=== PATIENT | female | born 1930 | race Caucasian/White ===

== ENCOUNTER → 2016-08-07 13:35 | Outpatient (CLI) | payer MEDICARE ==
[2010-10-15 14:15] VITALS: BMI 23.7
== END | disposition home or self-care (01) ==
LOC: D.US 13:35
DX: I65.23 Occlusion and stenosis of bilateral carotid arteries (principal)

== ENCOUNTER → 2017-11-07 09:56 | Outpatient (CLI) | payer MEDICARE ==
[2010-10-15 14:15] VITALS: BMI 23.7
== END | disposition home or self-care (01) ==
LOC: D.US 11-05 14:30
DX: I65.23 Occlusion and stenosis of bilateral carotid arteries (principal)

== ENCOUNTER 2018-05-02 10:21 | Outpatient (CLI) | payer MEDICARE ==
[~2018-05-02] VITALS: Ht 162.6 cm; Wt 68.2 kg
[2018-05-02 10:57] VITALS: BP 154/65; Ht 162.6 cm; Wt 68.2 kg
== END 2018-05-02 13:45 | disposition home or self-care (01) ==
LOC: D.OPS 10:21
DX: Z95.2 Presence of prosthetic heart valve (principal)

== ENCOUNTER → 2019-02-06 11:27 | Outpatient (CLI) | payer MEDICARE ==
[2018-05-02 10:57] VITALS: BMI 25.8
== END | disposition home or self-care (01) ==
LOC: D.US 11:27
PROVIDERS: ATTEND Internal Medicine Cardiovascular Disease
DX: I65.23 Occlusion and stenosis of bilateral carotid arteries (principal)

== ENCOUNTER → 2019-03-12 11:08 | Outpatient (CLI) | payer MEDICARE ==
[2018-05-02 10:57] VITALS: BMI 25.8
== END | disposition home or self-care (01) ==
LOC: D.HCCECHO 11:08 → D.HCCARDIO 11:30 → D.HCCECHO 11:30
PROVIDERS: ATTEND Internal Medicine Cardiovascular Disease
DX: I05.9 Rheumatic mitral valve disease, unspecified (principal)

== ENCOUNTER 2019-04-29 10:15 | Outpatient (CLI) | payer MEDICARE ==
[~2019-04-29] VITALS: Ht 162.6 cm; Wt 68.2 kg
[2019-04-29 10:56] VITALS: BP 150/66; Ht 162.6 cm; Wt 68.2 kg
--- NOTE | 2019-04-29 13:39 | NUR ---
DC INSTRUCTIONS GIVEN TO PT. STATES UNDERSTANDING. DC'D IV CATH FULLY INTACT.
== END 2019-04-29 13:45 | disposition home or self-care (01) ==
LOC: D.OPS 10:15
PROVIDERS: ATTEND Internal Medicine Cardiovascular Disease
DX: I35.9 Nonrheumatic aortic valve disorder, unspecified (principal)

== ENCOUNTER 2019-06-11 11:40 | Inpatient (IN) | payer MEDICARE ==
[2019-06-11] VITALS (26 sets, daily range): BP systolic 136–173; BP diastolic 43–70; BMI 25.9
[~2019-06-11] VITALS: Ht 162.6 cm; Wt 71.1 kg
--- NOTE | ~2019-06-11 | EC ---
PATIENT:KIMBERLEE DAVALOS DATE OF SERVICE: 06/11/19 SEX: F MEDICAL RECORD: [id number] DATE OF : 34 LOCATION:D[id number] AGE OF PATIENT: 89 ADMISSION DATE: 06/11/19 REFERRING PHYSICIAN: INTERPRETING PHYSICIAN: TAVARES SZYMANSKI MD ECHOCARDIOGRAM REPORT ECHO CHARGES 4 ECHO COMPLETE Date: 06/12/19 CLINICAL DIAGNOSIS: CVA HX AVR/CAD ECHOCARDIOGRAPHIC MEASUREMENTS (adult normal given) AC root (d.<3.7cm) 3.0 cm LV Septum d (<1.2 cm> 1.3 cm Valve Excursion 1.2 cm LV Septum (systole) 1.5 cm Left Atria (s.<4.0cm> 4.0 cm LVPW d(<1.2cm) 1.5 cm RV (d.<2.3cm) 3.7 cm LVPW (sytole) 1.5 cm LV diastole(<5.6CM) 4.5 cm MV E-F(>70mm/sec) cm LV systole 3.2 cm LVOT Diameter 1.5 cm MV exc.(>10mm) 1.1 cm Est.ejection fraction (50-75%) % DOPPLER: LVIT cm/sec A 143.0cm/sec E 84.0 cm/sec LA cm/sec RVSP 28 mmHg LVOT 109 cm/sec AOP1/2T m/s Asc. Ao 231 cm/sec RVOT 99 cm/sec RA cm/sec PA 137 cm/sec AV Gradient Peak 21.36mmHg AV Mean 12.31mmHg AV Area 1.0 cm MV Gradient Peak 9.99 mmHg MV Mean 3.39 mmHg MV Area cm COMMENTS: Beef Lugger: 2 MJ ARIAS Community Development Officer: 1 Dr. Szymanski TAPE# PACS Pericardial Effusion N DATE OF SERVICE: 06/12/2019 PROCEDURE: Echocardiogram. FINDINGS: 1. Left ventricular chamber size is within normal limits. Left ventricular systolic function is normal. Overall ejection fraction estimated at 60% to 65%. 2. Left atrium is upper limits of normal at 4.0 cm. Right atrium and right ventricular chamber sizes are as well upper limits of normal. 3. 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 There is a 21-mm gradient across the valve. The valve area calculates 1.0 cm-squared. The remaining valvular structures have normal structure and motion. 4. Doppler interrogation elsewise reveals mild mitral regurgitation, mild tricuspid regurgitation, no other valvular insufficiency or stenosis. Pulmonary systolic pressure estimated at 28 mmHg. 5. No evidence of pericardial effusion or left ventricular thrombus. TRANSINT:[id number] Voice Confirmation ID: [id number] DOCUMENT ID: [id number] TAVARES SZYMANSKI MD CC: [id number] DICTATION DATE: 06/12/19 1156 SENIOR CLINICAL STUDY MANAGER: 06/12/19 1630 ADM IN [facility] [address] [id number]
[2019-06-11] MEDS ORDERED: COUMADIN2 MG PO (12:32)
[2019-06-11] MEDS ORDERED: HYDROCHLOROTHIA25 MG PO (12:33)
[2019-06-11] MEDS ORDERED: NORMODYNE / TR200 MG PO (12:33)
[2019-06-11] MEDS ORDERED: OMEPRAZOLE20 M1 PO (12:34)
--- NOTE | 2019-06-11 13:11 | NUR ---
ET TUBE PULLED BACK 3CM BY RT PER DR. SOLANO.
[2019-06-11 13:13] LABS: BASOPHILS 0.1 % (0-2); EOSINOPHILS 0.6 % (0-7); HEMOGLOBIN 14.1 g/dL (12-16); IMMATURE GRANULOCYTES 0.8 % (0-5); LYMPHOCYTES 28.7 % (15-50); MCH 29.3 pg (26.0-34.0); MCHC 33.6 g/dL (31.0-37.0); MCV 87.3 fL (80.0-100.0); MEAN PLATELET VOLUME 10.1 fL (7.4-10.4); MONOCYTES 8.4 % (2-11); NEUTROPHILS 61.4 % (40-80); RBC 4.81 10x6/uL (4.00-5.40); RDW 13.6 % (11.5-14.5); WBC 8.8 10x3/uL (4.8-10.8)
[2019-06-11 13:17] LABS: APTT 32.7 SECONDS (22.8-39.4); INR 1.99 (0.85-1.17); PROTIME 22.3 SECONDS (11.6-15.0)
[2019-06-11 13:20] LABS: CALCIUM 9.1 mg/dL (8.5-10.1); CARBON DIOXIDE 17.5 mmol/L (21.0-32.0); CREATININE - SERUM 1.4 mg/dL (0.6-1.3); POTASSIUM - SERUM 3.5 mmol/L (3.5-5.1)
[2019-06-11 13:32] LABS: UDS - AMPHET NEGATIVE QUAL (NEGATIVE); UDS - BARB NEGATIVE QUAL (NEGATIVE); UDS - BENZO NEGATIVE QUAL (NEGATIVE); UDS - COCAINE NEGATIVE QUAL (NEGATIVE); UDS - OPIATE NEGATIVE QUAL (NEGATIVE); UDS - PCP NEGATIVE QUAL (NEGATIVE); UDS - THC NEGATIVE QUAL (NEGATIVE)
[2019-06-11 13:34] LABS: BILIRUBIN - TOTAL 0.95 mg/dL (0.2-1.3); PROTEIN - SERUM 6.9 g/dL (6.4-8.2); T4 THYROXIN - FREE 1.51 ng/dL (0.76-1.46); THYROID STIMULATING HORMONE 1.97 uIU/mL (0.36-3.74)
[2019-06-11 13:35] LABS: PLATELET COUNT 242 10x3/uL (130-400)
[2019-06-11 13:38] LABS: APPEARANCE SL CLDY (CLEAR); BILIRUBIN NEGATIVE (NEGATIVE); COLOR YELLOW (YELLOW); GLUCOSE NEGATIVE (NEGATIVE); KETONE NEGATIVE (NEGATIVE); NITRITE NEGATIVE (NEGATIVE); PROTEIN TRACE mg/dL (NEGATIVE); UROBILINOGEN NORMAL (NORMAL)
[2019-06-11 13:41] LABS: BACTERIA MANY /hpf (NEGATIVE); EPITHELIAL CELLS OCC /hpf (0-5); MUCUS <1+ /lpf (NONE SEEN); RED CELLS - URINE OCC /hpf (0-5)
--- NOTE | 2019-06-11 17:50 | NUR ---
PT ARRIVED TO UNIT AT 1745 ON VENT. PLACED ON A/C, R-15, TV 500, FIO60%, PEEP 5. ETT SIZE 7.5 24 LIP LINE RIGHT. NTG TO RIGHT NARE CONNECTED TO LIWS. BROWN CONTENT NOTED. PIV TO RIGHT AC WITH PROPOFOL INFUSING AT 50MCG/KG/MIN. NS AT 100ML/HR. PIV ON LEFT HAND SALINE LOCK. MILLER CATHETER IN PLACE WITH YELLOW URINE NOTED. CONNECTED TO AUTOMOTIVE PARTS COUNTER PERSON. BP AT THIS TIME 202/67. HR 74, O2 SAT 100%. TEMP 98.7 ORALLY. WILL CONTINUE TO MONITOR.
--- NOTE | 2019-06-11 17:50 | NUR ---
TWO GOLD RINGS REMOVED FROM PATIENT HANDS. ONE IS YELLOW GOLD WITH WHITE GOLD INLAY BAND WITH 3 GOLD ACCENT WRAPPED SECTIONS. THE SECOND RING IS LARGE CHANTALE CUT WHITE STONE WITH TWO SMALL STONES FLANKING AND BAND APPEARS TO BE WHITE GOLD WITH YELLOW GOLD SURROUNDING CENTER STONE. PT ALSO HAS A QUART SIZE ZIPLOCK STYLE STORAGE BAG WITH A CLEAR BEADED BRACELET, BLACK BEADED BRACELET AND YELLOW GOLD NECKLACE WITH TREE PENDANT. THERE IS ALSO 4 PRESCRIPTION BOTTLES WITH PT NAME ON THEM. OMEPRAZOLE, WARFARIN, LABETELOL AND HYDROCHLOROTHIAZIDE.
--- NOTE | 2019-06-11 18:03 | NUR ---
DR. SUH NOTIFIED OF PATIENT ARRIVAL. NOTIFIED OF BP BEING 188/70. CAME ON 50MCG/KG/MIN OF PROPOFOL.
--- NOTE | 2019-06-11 18:11 | NUR ---
VERIFIED WITH DR. SUH IF HE WANTED VERSED TO BE STARTED. HE SAID YES. DAUGHTER'S PHONE NUMBER GIVEN TO DR. SUH.
--- NOTE | 2019-06-11 19:00 | NUR ---
Received report from off going RN. Pt is in bed sedated with bilateral wrist restriants. Pt does not awaken or respond to any verbal or physical stimuli. Admission assessment completed, see flowsheet for details. Pt repositioned for comfort. Oral care performed. No s/s of distress at this time. Will continue to monitor.
--- NOTE | 2019-06-11 19:33 | NUR ---
CALLED AND SPOKE WITH DR GAUTHIER ABOUT MANNITOL DOSING. RECEVIED NEW ORDERS FOR 40G Q12H FOR 24 HOURS. ALSO ASKED FOR DOSE OF 20MG LASIX TO BE GIVEN PRIOR TO MANNITOL. DECADRON 6MG IV Q6H.
[2019-06-11 19:50] LABS: CKMB 1.3 U/L (0.0-3.6); CREATINE KINASE 138 UL (21-215)
[2019-06-11 19:52] LABS: TROPONIN-I < 0.017 ng/mL (0.000-0.060)
[2019-06-11 19:54] LABS: MAGNESIUM - SERUM 1.7 mg/dL (1.8-2.4)
--- NOTE | 2019-06-11 21:00 | NUR ---
Spoke with daughter who is on her way from [place]. States she will be here between 2330 and 0000. She is very upset that her mother was not listed as a DNR. States that she looks forward to being here in person so that hopefully someone can explain to her why her mothers DNR was not followed. I attempted to explain to her that we do not have an advance directive on her mothers chart and that we would not be able to follow something we are unaware of. Daughter stated she would see us later on. Pt remains unresponsive despite decreasing sedation down, will continue to decrease sedation to see if able to get pt to respond. Pt repositioned for comfort. Oral care performed. No s/s of distress noted. Will continue to monitor closely.
--- NOTE | 2019-06-11 23:00 | NUR ---
Reassessment completed, see flowsheet for details. Pt repositioned for comfort. Oral care completed. Continuing to turn sedation down at this time, pt will grimance to pain but is not following commands and is unresponsive otherwise. No further needs noted. Will continue to monitor.
[2019-06-12] VITALS (43 sets, daily range): BP systolic 145–192; BP diastolic 50–108; Ht 162.6 cm; Wt 71.1 kg
--- NOTE | 2019-06-12 01:00 | NUR ---
Daughter arrived, bringing with her Living Will and POA paperwork laying out the wishes of her mom. The Living Will does not explictly spell out that the patient wanted to be a DNR. After discussion with the daughter on the matter it was agreed that we would wait till in the morning to discuss it with the doctors and to make a decision at that time. Our copy of the Living Will and POA paperwork can be found in the front of the patients paper chart. Carrie Kee and Jim Golden are listed as being POA, Carrie states that her brother Jim has , leaving her as the only POA for her mom. Pt was repositioned for comfort at this time, and Oral care was performed. At this time Pt's sedation was off. Pt is moving around some but not purposefully and is not following commands. No further needs noted. Will continue to monitor.
--- NOTE | 2019-06-12 01:15 | NUR ---
Pt belongings given to daughter Carrie Kee. Belongings included two rings, two other jewerly items and 4 prescription pill bottles.
[2019-06-12 01:47] LABS: CKMB 1.1 U/L (0.0-3.6); CREATINE KINASE 167 UL (21-215); TROPONIN-I < 0.017 ng/mL (0.000-0.060)
--- NOTE | 2019-06-12 02:00 | NUR ---
Pt started biting the tube causing the vent to alarm. Turned propofol back on at a low rate. This seems to be enough to sedate the patient at this time. No further needs noted. Will continue to monitor.
--- NOTE | 2019-06-12 03:00 | NUR ---
Reassessment completed, see flowsheet for details. Pt is laying in bed sedated and on the vent. Pt repositioned for comfort. Oral care completed. No further needs noted at this time. No s/s of distress. Will continue to monitor.
--- NOTE | 2019-06-12 05:00 | NUR ---
Pt is laying in bed sedated and on the vent at this time. Restriants were removed earlier due to patient not moving arms around much if at all at this time. Pt repositioned for comfort. Will continue to monitor.
[2019-06-12 07:14] LABS: BASOPHILS 0 % (0-2); EOSINOPHILS 0 % (0-7); HEMATOCRIT 34.6 % (36.0-48.0); HEMOGLOBIN 12.1 g/dL (12-16); IMMATURE GRANULOCYTES 0.3 % (0-5); LYMPHOCYTES 4.6 % (15-50); MCH 28.9 pg (26.0-34.0); MEAN PLATELET VOLUME 9.7 fL (7.4-10.4); MONOCYTES 3.1 % (2-11); RBC 4.18 10x6/uL (4.00-5.40); RDW 13.5 % (11.5-14.5)
[2019-06-12 07:22] LABS: INR 2.3 (0.85-1.17)
[2019-06-12 07:28] LABS: MCV 82.8 fL (80.0-100.0); PLATELET COUNT 170 10x3/uL (130-400); WBC 11.8 10x3/uL (4.8-10.8)
[2019-06-12 07:46] LABS: ALBUMIN 3.2 g/dL (3.4-5.0); ALKALINE PHOSPHATASE 82 U/L (46-116); BILIRUBIN - TOTAL 0.64 mg/dL (0.2-1.3); CALC OSMOLALITY 289 mosm/kg (275-300); CALCIUM 7.9 mg/dL (8.5-10.1); CHLORIDE - SERUM 102 mmol/L (98-107); CREATINE KINASE 173 UL (21-215); GLUCOSE 154 mg/dL (74-106); MAGNESIUM - SERUM 1.6 mg/dL (1.8-2.4); PROTEIN - SERUM 5.7 g/dL (6.4-8.2); SODIUM 142 mmol/L (136-145); TROPONIN-I < 0.017 ng/mL (0.000-0.060); UREA NITROGEN 23 mg/dL (7-18)
[2019-06-12 07:49] LABS: ALT (SGPT) 42 U/L (10-68); CARBON DIOXIDE 25.5 mmol/L (21.0-32.0); eGFR NON AFRICAN AMERICAN 55 mL/min (90-120)
[2019-06-12 07:50] LABS: POTASSIUM - SERUM 2.7 mmol/L (3.5-5.1)
--- NOTE | 2019-06-12 09:43 | NUR ---
0700 PT RECIEVED SEDATED ON VENT, ETT SECURED, HYPERTENSIVE, PIVS CDI, PATENT, MILLER DRAINING YELLOW URINE, REPOSITIONED, WILL CONTINUE TO MONITOR 0750 PTS DAUGHTER IN WAITING ROOM SAID SHE WOULD BE GOING TO GET PTS BOYFRIEND AND RETURNING, PHONE NUMBER AND VISITING HOUR SHEET PROVIDED 0900AM MEDS GIVEN, REPOSITIONED 0930 PT ATTEMPTING TO REACH ETT, AND TURNING HEAD, PROPOFOL INCREASED ER IV FLOWSHEET 0940 PTS DAUGHTER HERE FOR VISITATION
--- NOTE | 2019-06-12 09:55 | NUR ---
DR GAUTHIER IN UNIT, SPOKE WITH FAMILY, ORDERS TO WEAN SEDATION OFF TO SEE IF PT FOLLOWS COMMANDS
--- NOTE | 2019-06-12 12:00 | NUR ---
1130 PT DOES NOT FOLLOW COMMANDS OR OPEN EYES BUT COUGHS AND ATTEMPTS TO SIT UP AND PULL ETT, DR GAUTHIER CALLED AND OKAYED TO RESUME SEDATION
--- NOTE | 2019-06-12 12:29 | NUR ---
RECIEVED CALL FROM DR DICKERSON TO MOVE ETT TO 22CM AND GET CXR. RT NOTIFIED
--- NOTE | 2019-06-12 12:58 | NUR ---
MANITOL INFUSED, WILL DECREASE SEDATION PER DR DICKERSON
--- NOTE | 2019-06-12 13:47 | NUR ---
SEDATION WEANED OFF AND PT INTERMITTLY FOLLOWING COMMANDS, WHEN ASKED TO DO HAND RN CIRCULATING PT WILL DO RIGHT BUT NOT LEFT SIDE THEN WHEN ASKED AGAIN WILL DO LEFT SIDE BUT NOT RIGHT SIDE
--- NOTE | 2019-06-12 13:55 | NUR ---
SPOKE WITH DR DICKERSON AND UPDATED, ORDERS FOR PRESSURE SUPPORT TRAIL IN 30 MINUTES, RT NOTIFIED
--- NOTE | 2019-06-12 16:45 | NUR ---
EXTUBATED AND RESTRAINTS REMOVED PER DR DICKERSON IN UNIT
--- NOTE | 2019-06-12 18:09 | NUR ---
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
--- NOTE | 2019-06-12 19:00 | NUR ---
BEDSIDE REPORT AND SHIFT ASSESSMENT COMPLETE, SEE FLOWSHEET. VSS, NO SIGNS 0F ACUTE DISTRESS NOTED. PT SLEEPING, EASY TO AROUSE AND SLOW TO RESPOND. BRUISES TO BILAT ARMS. R FOREARM PIV PATENT, DRESSING CDI, SEE IV FLOWSHEET. O2 SAT 97 ON 4 L NC. ALL PULSES PALP. BED IN LOWEST POSITION, CALL LIGHT IN REACH, WILL CONTINUE TO MONITOR.
--- NOTE | 2019-06-12 20:00 | NUR ---
DR SUH AT BEDSIDE, UPDATE GIVEN. HE SPOKE WITH DAUGHTER AND SUGGESTED THAT DR GAUTHIER AND DAUGHTER MEET IN AM TO DISCUSS POC. I INFORMED HIM THAT I WOULD PASS IT ALONG TO AM RN TO SCHEDULE MEETING. HE SAID IF HE NEEDS TO BE HERE WELL TO CALL.
--- NOTE | 2019-06-12 20:20 | NUR ---
DOMO COLLINS AT BEDSIDE, UPDATE GIVEN.
--- NOTE | 2019-06-12 21:30 | NUR ---
CHG BATH, MILLER CARE, AND LINEN CHANGE COMPLETE WITH ASSISTANCE FROM PT DAUGHTER. PT'S DAUGHTER REFUSED SCD'S, STATES LAST TIME PT WAS IN HOSPITAL THEY LEFT BRUISES ON HER LEGS. L ARM BRUSED, B/P CUFF MOVED TO L LEG, PT'S DAUGHTER EXPRESSED CONCERN OF BRUISING, INFORMED SKIN WOULD BE MONITORED AND NIPB SITE WOULD BE ROTATED.
--- NOTE | 2019-06-12 22:15 | NUR ---
DAUGHTER AT BEDSIDE EXPRESSING CONCERN ABOUT LEAVING FOR VISITING HOURS, SAID "I DONT KNOW WHAT KIND OF SECRETS YOU ARE TRYING TO KEEP FROM ME BY SHOVING ME IN THE OTHER R0OM BUT I DONT LIKE IT" INFORMED HER THAT THERE WERE NO SECRETS AND IF THERE WERE ANY CHANGES R/T PT CARE OR STATUS SHE WILL BE INFORMED.
--- NOTE | 2019-06-12 22:20 | NUR ---
PT'S DAUGHTER REMOVED B/P CUFF AND ARM BANDS FROM ARM. B/P CUFF PLACED BACK ON PT'S ARM.
--- NOTE | 2019-06-12 23:00 | NUR ---
REASSESSMENT COMPLETE, SEE FLOWSHEET.
[2019-06-13] VITALS (24 sets, daily range): BP systolic 132–188; BP diastolic 45–70
--- NOTE | 2019-06-13 01:00 | NUR ---
REPOSITIONED FOR COMFORT. VSS.
--- NOTE | 2019-06-13 03:00 | NUR ---
REASSESSMENT COMPLETE, SEE FLOWSHEET. PT GAURDING L ARM, GRIMACES IN PAIN WHEN B/P CUFF INFLATES. L UPPER ARM RED, BRUISED. B/P CUFF MOVED TO LLE. REPOSITIONED FOR COMFORT. VSS, NO SIGNS OF ACUTE DISTRESS NOTED. WILL CONTINUE TO MONITOR.
--- NOTE | 2019-06-13 04:00 | NUR ---
DAUGHTER AT BEDSIDE, VOICING OPINION OF FAMILY INCLUSION IN THE INTENSIVE CARE SETTING. UPDATE GIVEN ON PT STATUS.
--- NOTE | 2019-06-13 05:00 | NUR ---
REPOSITIONING COMPLETE. VSS, NO SIGNS OF DISTRESS NOTED. DAUGHTER AT BEDSIDE.
[2019-06-13 05:50] LABS: BASOPHILS 0 % (0-2); EOSINOPHILS 0 % (0-7); HEMATOCRIT 29.7 % (36.0-48.0); IMMATURE GRANULOCYTES 0.4 % (0-5); LYMPHOCYTES 3.8 % (15-50); MCH 28.9 pg (26.0-34.0); MCHC 33.7 g/dL (31.0-37.0); MEAN PLATELET VOLUME 9.7 fL (7.4-10.4); MONOCYTES 3.6 % (2-11); NEUTROPHILS 92.2 % (40-80); PLATELET COUNT 138 10x3/uL (130-400); RBC 3.46 10x6/uL (4.00-5.40); WBC 10.6 10x3/uL (4.8-10.8)
[2019-06-13 06:02] LABS: MCV 85.8 fL (80.0-100.0)
[2019-06-13 06:16] LABS: ALBUMIN 2.8 g/dL (3.4-5.0); ANION GAP 12.6 mmol/L (8-16); BILIRUBIN - TOTAL 0.46 mg/dL (0.2-1.3); CALCIUM 7.1 mg/dL (8.5-10.1); CARBON DIOXIDE 25.9 mmol/L (21.0-32.0); CREATININE - SERUM 0.8 mg/dL (0.6-1.3); MAGNESIUM - SERUM 1.8 mg/dL (1.8-2.4); POTASSIUM - SERUM 3.5 mmol/L (3.5-5.1); PROTEIN - SERUM 5.2 g/dL (6.4-8.2)
[2019-06-13 06:39] LABS: INR 2.45 (0.85-1.17); PROTIME 26.2 SECONDS (11.6-15.0)
--- NOTE | 2019-06-13 09:06 | NUR ---
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 BP CUFF SITE ROTATED, SEE SHIFT ASSESSMENT FOR DETAILS 0800 DAUGHTER IN ROOM FOR VISITATION, UPDATE PROVIDED AND TOLD THAT SHE WOULD BE NOTIFIED MDS ROUNDED. 0900 DR SUH IN ROOM, SPOKE WITH PTS DAUGHTER IN LENGTH, HE ASKED WHEN DR GAUTHIER WOULD ROUND STATED DR GAUTHIER USUALLY ROUNDS AFTER HIS CLINIC AND HE STATED THIS WAS FINE LONG HE SPOKE WITH DAUGHTER.
--- NOTE | 2019-06-13 10:12 | NUR ---
ASKED PTS DAUGHTER IF SHE WOULD BE IN WAITING ROOM TO SPEAK WITH MDS THEY ROUNDED WHILE IT WAS NOT VISITATION AND SHE STATED SHE WOULD NOT BE, WILL NOTIFY MDS THAT SHE WILL RETURN AND WILL HAVE HER PHONE WITH HER. PT CONTINUES WITH OUT CHANGE, INTERMITTENTLY FOLLOWS COMMANDS AND AWAKENS WHEN SPOKEN TO
--- NOTE | 2019-06-13 13:50 | NUR ---
1156 DR DICKERSON IN ROOM FOR ROUNDS, CHECKED WAITING ROOM FOR PTS DAUGHTER WHO WAS NOT PRESENT, DR DICKERSON STATED HE DID NOT WANT TO CALL DAUGHTER BECAUSE HE DID NOT HAVE NEWS. 1230 PTS DAUGHTER HERE FOR VISITATION, UPDATE PROVIDED 9232 PTS DAUGHTER NOTED TO BE PUTTING SOMETHING THICK AND WHITE ON PTS LIPS, WHEN ASKED SHE STATED IT WAS "OLD CHAPSTICK" . DISCUSSED TO USE MOUTH MOISTURIZER THAT IS IN ROOM BECAUSE PT IS ON O2 AND SHOULD NOT USE PRODUCTS WITH PETROLEUM. DAUGHTER STATES UNDERSTANDING.
--- NOTE | 2019-06-13 14:31 | NUR ---
PT ABLE TO STATE NAME, BELIEVES SHE IS IN [place] AND THAT IT IS MAY, STATES SHE WAS BORN IN YEAR 2020, WHEN HOLDING UP 5 FINGERS STATES THERE IS 12 AND WHEN HOLDING UP 1 FINGER STATES THERE IS 6. PT IS ABLE TO MOVE EXTREMETIES ON COMMAND AND HAS EQUAL MOVEMENT.
--- NOTE | 2019-06-13 18:56 | NUR ---
dr vieira spoke with daughter, answered all questions
--- NOTE | 2019-06-13 19:45 | NUR ---
REPORT REC'D AND CARE ASSUMED, REC'D PT RESTING IN BED ON O2 @ 2LITERS, PT HAS DIFFICULTY EXPRESSING THE RIGHT WORD WHEN ATTEMPTING VOICE NEEDS, ORIENTED TO PERSON AND YEAR, RIGHT FOREARM PIV WITH NS @ 10OCC/HR, BILAT ARMS BRUISED, ACCORDING TO PT'S DAUGHTER IT WAS CAUSED FROM BP CUFF, BP CUFF ON LEFT LEG AT THIS TIME, PT MOVES ALL EXT'S EQUALLY, MILLER PATENT DRAINING CLEAR YELLOW URINE, PPP, BED IN LOW POSITION, CALL LIGHT IN REACH, BED ALARM ENGAGED.
--- NOTE | 2019-06-13 20:00 | NUR ---
PT HAS SUPPER TRAY WHICH SHE CONSUMED 40% OF, DAUGHTER AT BS ASSISTING PATIENT WITH DESSERT, UPDATE PROVIDED AND QUESTIONS ANSWERED, PT REQUESTING MILK, MILK PROVIDED AT THIS TIME.
--- NOTE | 2019-06-13 21:15 | NUR ---
PT ABLE TO BRUSH OWN TEETH ONCE SHE GOT STARTED, RINSING MOUTH REQUIRED SOME PROMPTING, DAUGHTER AT BS ASSISTING.
--- NOTE | 2019-06-13 22:30 | NUR ---
PARTIAL LINEN CHANGE PROVIDED AND PT REPOSITIONED UP IN BED AND ONTO RIGHT SIDE SUPPORTED WITH PILLOW.
--- NOTE | 2019-06-13 23:15 | NUR ---
PT ATTEMPTING TO GET OOB, STATES "WIPE" KLEENEX OFFERED, STATES "WIPE", READY BATH CLOTH PROVIDED PT STATES "NO WET WIPE" EXPLANIED TO PT THE READY BATH WIPE IS WET, PT CHECKED FOR BM, SMALL LOOSE BROWN STOOL NOTED, PARTIAL BATH AND LINEN CHANGE PROVIDED, PT REPOSITIONED FOR COMFORT, SR UP X 2, BED IN LOW POSITION, CALL LIGHT IN REACH.
[2019-06-14] VITALS: BP 160/47
[2019-06-14 01:00] VITALS: BP 158/81
--- NOTE | 2019-06-14 01:00 | NUR ---
NO CHANGES IN STATUS
[2019-06-14 02:00] VITALS: BP 167/54
[2019-06-14 03:00] VITALS: BP 171/57
--- NOTE | 2019-06-14 03:00 | NUR ---
REASSESSMENT COMPLETED, NO CHANGES FROM PREVIOUS ASSESSMENT, PT REPOSITIONED UP AND ONTO LEFT SIDE SUPPORTED WITH PILLOW.
--- NOTE | 2019-06-14 04:00 | NUR ---
DAUGHTER AT BS, UPDATE PROVIDED
--- NOTE | 2019-06-14 04:06 | NUR ---
PT COMPLAINS OF LEFT SHOULDER PAIN AND LEGS HURTING, GENERALIZED BRUISING TO BILAT EXT'S, TYLENOL 650MG GIVEN PO FOR DISCOMFORT, WILL MONITOR CLOSELY FOR CHANGES.
--- NOTE | 2019-06-14 05:30 | NUR ---
CHG BATH AND COMPLETE LINEN CHANGE PROVIDED WITH DAUGHTER'S ASSISTANCE, PT REPOSITIONED UP IN BED AND ONTO RIGHT SIDE SUPPORTED WITH PILLOW, TOLERATED WELL, PT REPORTS TYLENOL HELPED.
[2019-06-14 06:13] LABS: BASOPHILS 0 % (0-2); EOSINOPHILS 0 % (0-7); HEMATOCRIT 31.9 % (36.0-48.0); HEMOGLOBIN 10.5 g/dL (12-16); IMMATURE GRANULOCYTES 0.6 % (0-5); LYMPHOCYTES 5.3 % (15-50); MCH 28.7 pg (26.0-34.0); MCHC 32.9 g/dL (31.0-37.0); MCV 87.2 fL (80.0-100.0); MEAN PLATELET VOLUME 10.3 fL (7.4-10.4); MONOCYTES 3.7 % (2-11); NEUTROPHILS 90.4 % (40-80); PLATELET COUNT 133 10x3/uL (130-400); RBC 3.66 10x6/uL (4.00-5.40); RDW 13.8 % (11.5-14.5); WBC 10.5 10x3/uL (4.8-10.8)
--- NOTE | 2019-06-14 08:08 | NUR ---
PT POSITIONED FOR BREAKFAST. DAUGHTER AT BS.
[2019-06-14 08:52] LABS: PROTIME 21.6 SECONDS (11.6-15.0)
[2019-06-14 08:59] LABS: INR 1.9 (0.85-1.17)
[2019-06-14 09:04] LABS: ALBUMIN 3.1 g/dL (3.4-5.0); ANION GAP 12.7 mmol/L (8-16); BILIRUBIN - TOTAL 0.69 mg/dL (0.2-1.3); CALCIUM 7.8 mg/dL (8.5-10.1); CARBON DIOXIDE 24.8 mmol/L (21.0-32.0); CREATININE - SERUM 0.8 mg/dL (0.6-1.3); POTASSIUM - SERUM 3.5 mmol/L (3.5-5.1); PROTEIN - SERUM 5.9 g/dL (6.4-8.2)
--- NOTE | 2019-06-14 09:10 | NUR ---
ATTEMPTING TO TAKE BP. PT YELLING OUT IN PAIN WITH BP CUFF ON LEG BECAUSE REFUSING TO ALLOW ARMS TO BE USED FOR BP BY DAUGHTER DUE TO BRUISING. DAUGHTER VERY EXCITED WELL AND DEMANDS TO STOP CUFF INFLATION. STOPPED BP AND TOOK CUFF OFF. PT IN ROOM TO AMB. PTS DAUGHTER INSIST FOR PT TO BE PLACED SEATED AT WINDOW. NO CM WILL REACH AT THIS POINT.
[2019-06-14 13:18] VITALS: BP 140/70
--- NOTE | 2019-06-14 13:52 | NUR ---
DR SUH ROUNDS AND REPORTED THAT PT AND HER DAUGHTER REFUSE BP MONITORING. APPLIED BP CUFF TO PTS LEG AND PT BEGAN TO YELL AND SHAKE EXTREMITY. NO BP RESULTED.
--- NOTE | 2019-06-14 13:55 | NUR ---
DAUGHTER BROUGHT IN MANUAL BP CUFF. BP 140/80.
--- NOTE | 2019-06-14 16:01 | NUR ---
REPORTED TO DR GUTIÉRREZ CONSULT. REC'D ORDER FOR SLING.
[2019-06-14 19:30] VITALS: BP 160/72
--- NOTE | 2019-06-14 19:33 | NUR ---
NORCO 5 GIVEN PO FOR PAIN, PT COMPLAINS OF BEING COLD, BLANKET PROVIDED AND LEFT ARM ELEVATED ON PILLOW, PT ESCORT NOTIFIED BY PREVIOUS SHIFT OF NEED FOR ARM SLING WILL APPLY WHEN ARRIVES.
--- NOTE | 2019-06-14 19:40 | NUR ---
REPORT REC'D AND CARE ASSUMED, PT RESTING ON ROOM AIR, ASKING FOR SOMETHING TO BE WRITTEN ON THE BLACKBOARD, PT ORIENTED TO PERSON AND YEAR, PT TEARFUL AT TIMES WHILE ATTEMPTING TO COMMUNICATE, BILAT BRUISES FROM HAND TO RIGHT ELBOW AND ON LEFT FROM FOREARM TO UPPER LEFT ARM, SR UP X 2, ICE PACKS REMOVED FROM LEFT ARM PER PT REQUEST, PT COMPLAINS OF PAIN, RATING PAIN "6" ON 0-10 PAIN SCALE, BED IN LOW POSITION, CALL LIGHT IN REACH.
--- NOTE | 2019-06-14 20:35 | NUR ---
DAUGHTER AT BS, UPDATE GIVEN AND QUESTIONS ANSWERED, PT RESTING IN BED EYES CLOSED, CM-SR.
--- NOTE | 2019-06-14 22:30 | NUR ---
PT ASSISTED UP TO BEDSIDE COMMODE, PERIPAD WET, LINENS WET WITH SWEAT, PARTIAL BATH AND FULL LINEN CHANGE PROVIDED, PT HAD SMALL BM AND APPROXIMATELY 100CC JOSE COLORED URINE, PERICARE PROVIDED WITH ASSISTANCE OF DAUGHTER, PT ASSISTED BACK TO BED, LEFT ARM ELEVATED ON PILLOW, ICE WATER PROVIDED ON REQUEST, SR UP X 2, CALL LIGHT AND BS TABLE WITHIN REACH.
--- NOTE | 2019-06-14 23:30 | NUR ---
REASSESSMENT COMPLETED, HOSPITAL BAND FELL OFF, NEW ID BAND PLACE ON PT, PT ASSISTED TO POSITION FOR COMFORT, DENIES NEEDS, SR UP X 2, BED IN LOW POSITION, CALL LIGHT IN REACH
--- NOTE | 2019-06-15 01:30 | NUR ---
PT RESTING IN BED, EYES CLOSED, RESP EVEN AND UNLABORED, CM-SR @ 65, PULSE OX 96% ON ROOM AIR, WILL CONT TO MONITOR CLOSELY FOR CHANGES
--- NOTE | 2019-06-15 03:30 | NUR ---
REASSESSMENT COMPLETED, PT RESTING IN BED EYES CLOSED, RESP EVEN AND UNLABORED, VSS, BED IN LOW POSITION, SR UP X 2, CALL LIGHT IN REACH.
[2019-06-15 04:00] VITALS: BP 154/70
--- NOTE | 2019-06-15 05:35 | NUR ---
PT ASSISTED UP TO BSC X 2 ASSISTS, PT VOIDED 150CC CONCENTRATED URINE AND HAD SMALL LOOSE BROWN STOOL, PERICARE PROVIDED AND BEE PAD CHANGED, ASSISTED PT BACK TO BED, SPLINT APPLIED TO LEFT ARM, TOLERATED WELL, CALL LIGHT IN REACH, DAUGHTER AT BS.
[2019-06-15 06:08] LABS: BASOPHILS 0 % (0-2); EOSINOPHILS 0 % (0-7); HEMATOCRIT 32.1 % (36.0-48.0); HEMOGLOBIN 10.5 g/dL (12-16); IMMATURE GRANULOCYTES 0.4 % (0-5); LYMPHOCYTES 7.2 % (15-50); MCH 28.6 pg (26.0-34.0); MCHC 32.7 g/dL (31.0-37.0); MCV 87.5 fL (80.0-100.0); MONOCYTES 2.7 % (2-11); NEUTROPHILS 89.7 % (40-80); RBC 3.67 10x6/uL (4.00-5.40); RDW 13.8 % (11.5-14.5); WBC 10.3 10x3/uL (4.8-10.8)
[2019-06-15 06:14] LABS: PLATELET COUNT 188 10x3/uL (130-400)
[2019-06-15 06:36] LABS: INR 1.6 (0.85-1.17); PROTIME 18.8 SECONDS (11.6-15.0)
[2019-06-15 07:00] VITALS: BP 160/80
[2019-06-15 07:01] LABS: ANION GAP 17.2 mmol/L (8-16); BILIRUBIN - TOTAL 0.6 mg/dL (0.2-1.3); CREATININE - SERUM 0.9 mg/dL (0.6-1.3); POTASSIUM - SERUM 4.2 mmol/L (3.5-5.1); PROTEIN - SERUM 5.8 g/dL (6.4-8.2)
--- NOTE | 2019-06-15 08:22 | NUR ---
ASSIOSTED TO CHAIR. DR KUMARI HERE THIS AM.
[2019-06-15 11:00] VITALS: BP 158/70
[2019-06-15 15:00] VITALS: BP 138/78
--- NOTE | 2019-06-15 18:11 | NUR ---
1300- DR GUTIÉRREZ SPOKE TO PT AND HER DAUGHTER AT BS TODAY ON ROUNDS. CM NOTIFIED RE: LAURA KIRK.
--- NOTE | 2019-06-15 18:12 | NUR ---
1500- DR GAUTHIER SPOKE TO PT AND HER DAUGHTER ON ROUNDS TODAY. NO NEW ORDERS AT PRESENT TIME. DR BROWN ALSO SPOKE TO PT AND HER DAUGHTER ON ROUNDS AT BS.
[2019-06-15 19:00] VITALS: BP 154/82
--- NOTE | 2019-06-15 19:20 | NUR ---
SHIFT ASSESSMENT COMPLETE. NO DISTRESS NOTED AT THIS TIME. CALL LIGHT WITHIN REACH, BED IN LOW POSITION.
--- NOTE | 2019-06-15 21:15 | NUR ---
PATIENT RESTING WITH EYES CLOSED. NO DISTRESS NOTED AT THIS TIME. CALL LIGHT WITHIN REACH, BED IN LOW POSITION.
[2019-06-15 23:00] VITALS: BP 146/79
--- NOTE | 2019-06-15 23:00 | NUR ---
REASSESSMENT COMPLETE. NO CHANGES IN CONDITION. CALL LIGHT WITHIN REACH, BED IN LOW POSITION. PATIENT DENIES ANY NEEDS AT THIS TIME.
--- NOTE | 2019-06-16 00:51 | NUR ---
PATIENT OUT OF BED TO [facility] WITH [place]IST. PATIENT TOLERATED WELL. INCONTINENCE PAD CHANGED AND BEE AREA CLEANED. PATIENT VOIDED APPROX 700ML OF YELLOW URINE.
--- NOTE | 2019-06-16 01:24 | NUR ---
PATIENT C/O PAIN IN SHOULDER, APPROX. 3 ON PAIN SCALE. PATIENT STATES PAIN IS ACHING. PAIN MED GIVEN PER MD ORDER.
[2019-06-16 03:00] VITALS: BP 125/70
--- NOTE | 2019-06-16 03:00 | NUR ---
REASSESSMENT COMPLETE. NO CHANGES IN PATIENT CONDITION. CALL LIGHT WITHIN REACH, BED IN LOW POSITION.
[2019-06-16 04:24] LABS: BASOPHILS 0 % (0-2); EOSINOPHILS 0 % (0-7); HEMOGLOBIN 9.8 g/dL (12-16); IMMATURE GRANULOCYTES 1.9 % (0-5); LYMPHOCYTES 8.2 % (15-50); MCH 28.1 pg (26.0-34.0); MCHC 32.7 g/dL (31.0-37.0); MEAN PLATELET VOLUME 9.9 fL (7.4-10.4); MONOCYTES 4.5 % (2-11); NEUTROPHILS 85.4 % (40-80); PLATELET COUNT 175 10x3/uL (130-400); RBC 3.49 10x6/uL (4.00-5.40); RDW 13.6 % (11.5-14.5); WBC 9.3 10x3/uL (4.8-10.8)
[2019-06-16 04:40] LABS: INR 1.56 (0.85-1.17); PROTIME 18.5 SECONDS (11.6-15.0)
[2019-06-16 04:50] LABS: ALBUMIN 2.7 g/dL (3.4-5.0); ANION GAP 12.4 mmol/L (8-16); BILIRUBIN - TOTAL 0.55 mg/dL (0.2-1.3); CALCIUM 7.8 mg/dL (8.5-10.1); CARBON DIOXIDE 24.6 mmol/L (21.0-32.0); MAGNESIUM - SERUM 1.7 mg/dL (1.8-2.4); PROTEIN - SERUM 5.2 g/dL (6.4-8.2)
[2019-06-16 07:00] VITALS: BP 142/82
--- NOTE | 2019-06-16 07:46 | NUR ---
AWAITING KYE FROM PHARMACY, SPOKE WITH RADHA
--- NOTE | 2019-06-16 08:38 | NUR ---
0700 PT RECIEVED ALERT AND ORIENTED VSS NO SIGNS OF PAIN, RFA PIV SL, DRESSING CDI, SEE SHIFT ASSESSMENT FOR DETAILS 0800 OK TO TRANSFER TO FLOOR PER DR GAUTHIER 0830 PT TOOK AM MEDS AND ATE BREAKFAST, ASSISTED WITH MENU, THEN DAUGHTER HERE FOR VISITATION, INFORMED OF TRANSFER ORDERS.
--- NOTE | 2019-06-16 09:02 | NUR ---
REPORT CALLED TO [phone] MORGAN
--- NOTE | 2019-06-16 09:18 | NUR ---
PATIENT RECIEVED FROM ICU VIA WHEELCHAIR. NO DISTRESS. AGREE WITH PREVIOUS NURSE ASSESSMENT.
[2019-06-16 12:45] VITALS: BP 188/86
[2019-06-16 17:21] VITALS: BP 178/92
--- NOTE | 2019-06-16 19:15 | NUR ---
PATIENT ALERT AND ORIENTED. DAUGHTER AT BEDSIDE. ASSESSMENT PERFORMED. PATIENT IS ALERT AND ORIENTED. WHEN ASSESSING PERRLA, PATIENT RIGHT EYE IS REACTIVE BUT IS 2MM WHERE LEFT EYE IS ALSO REACTIVE BUT 3MM. PATIENT HAS LEFT ARM IN SLING. LEFT UPPER EXTREMETY HAS EXTENSIVE BRUISING AND SWELLING IS NOTED. PATIENT STATES "IT IS BROKEN". DOCTORS AWARE OF INJURY WHEN PERFORMING CHART CHECKS. LUNG SOUNDS ARE CLEAR BILATERALLY TO AUSCULTATION. BOWEL SOUNDS ARE ACTIVE. PATIENT DENIES PAIN AND DISCOMFORT AT THIS TIME. BILATERAL LOWER EXTREMETIE HAVE BRUISING TO BOTH KNEE AREAS. ASSESSED PEDAL PULSES AND BOTH ARE STRONG AND EQUAL. 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 BED ALARM ON DUE TO FALL SCORE CRITERIA. DAUGHTER IS STAYING THE NIGHT. SHE DISALARMS BED ALARM WHEN ASSISTING PATIENT TO THE BATHROOM. ADVISED SEVERAL TIMES TO PLEASE CALL TO AVOID ANY FALLS, INJURIES, AND POSSIBLE PROLONGING OF HOSPTIAL STAY. CALL LIGHT IN REACH. DENIES FURTHER NEEDS AT THIS TIME. CPOC.
[2019-06-16 19:30] VITALS: BP 176/80
[2019-06-17 00:30] VITALS: BP 178/75
--- NOTE | 2019-06-17 02:46 | NUR ---
RESTING WITHOUT DISCOMFORT OR DISTRESS NOTED. DAUGHTER REMAINS AT BEDSIDE. BED ALARM ON AND FUNCTIONING. CALL LIGHT IN REACH OF BOTH DAUGHTER AND PATIENT. CPOC.
[2019-06-17 05:27] LABS: ANION GAP 14.1 mmol/L (8-16); CALCIUM 7.6 mg/dL (8.5-10.1); CARBON DIOXIDE 25.4 mmol/L (21.0-32.0); POTASSIUM - SERUM 3.5 mmol/L (3.5-5.1)
[2019-06-17 05:30] VITALS: BP 164/72
[2019-06-17 05:45] LABS: BASOPHILS 0.2 % (0-2); EOSINOPHILS 0 % (0-7); HEMATOCRIT 30.4 % (36.0-48.0); HEMOGLOBIN 10.2 g/dL (12-16); IMMATURE GRANULOCYTES 3.9 % (0-5); LYMPHOCYTES 6.9 % (15-50); MCH 28.7 pg (26.0-34.0); MCHC 33.6 g/dL (31.0-37.0); MCV 85.6 fL (80.0-100.0); MEAN PLATELET VOLUME 10.5 fL (7.4-10.4); PLATELET COUNT 180 10x3/uL (130-400); RBC 3.55 10x6/uL (4.00-5.40); RDW 13.4 % (11.5-14.5); WBC 11.4 10x3/uL (4.8-10.8)
--- NOTE | 2019-06-17 06:19 | NUR ---
I have reviewed this patient and I concur with the Shift Assessment completed by the Licensed Practical Nurse today this shift.
[2019-06-17 09:21] VITALS: BP 156/72
--- NOTE | 2019-06-17 09:25 | NUR ---
NOTIFIED EZEQUIEL IN [employer]ERIALS ABOUT CUFF AND COLLAR SLING. STATED SHE HAD FAXED THE INFORMATION TO THEM YESTERDAY, BUT SHE WILL CALL THEM AGAIN AND SEE WHY THEY HAVENT COME AND WILL LET ME KNOW.
--- NOTE | 2019-06-17 10:19 | MORECARE ---
CASE MANAGEMENT DISCHARGE SUMMARY PATIENT: KIMBERLEE DAVALOS UNIT: [id number] ADM DATE: 06/11/19 AGE: 89 : 32 SEX: F ROOM/BED: D.2215 AUTHOR: DURGA BRITO PHYSICIAN: REFERRING PHYSICIAN: DALIA SUH MD DATE OF SERVICE: 06/17/19 Discharge Plan Patient Name: KIMBERLEE DAVALOS Facility: [facility]:[place] : 1930 Planned Disposition: Inpatient Rehab Anticipated Discharge Date: Discharge Date: Expected LOS: Initial Reviewer: [id number] Initial Review Date: 06/11/2019 Generated: 06/17/19 11:18 am Comments DCP- Discharge Planning Updated by [email or web address]: Eliza Turpin on 06/17/19 9:[address] Patient Name: KIMBERLEE DAVALOS Admission Status: ER Accout number: [id number] Admission Date: 06-11-2019 : 1930 Admission Diagnosis: Attending: NATALY Current LOS: 6 Anticipated DC Date: Planned Disposition: Inpatient Rehab Primary Insurance: MEDICARE A & B Discharge Planning Comments: CM met with patient & daughter to complete initial dc planning assessment. CM educated patient on the CM role and verbal consent given by patient to complete assessment. Patient lives at home in [facility], where she is independent with her care. At discharge patient plans to go to inpatient rehab at [facility] feels this is a safe discharge. CM discussed availability of home health, rehab services, and medical equipment. The daughter who lives in [place], stated that she would like to go here to inpatient rehab. HAILEE signed. We also discussed about the levels of care. She has a cane, walker, and BSC at home, but does NOT use any of them. 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 HAILEE for Inpatient rehab at [facility] and [facility]. Patient denied known discharge needs at this time. CM will continue to follow and will assist as needed with dc plans/needs. Donation Worker: Eliza Turpin DCPIA - Discharge Planning Initial Assessment Updated by [email or web address]: Eliza Turpin on 06/17/19 10:12 am * Is the patient Alert and Oriented? Yes * How many steps to enter\exit or inside your home? * PCP ABDIRIZAK REYES APN * Pharmacy [facility] * Preadmission Environment Home Alone * ADLs Independent * Equipment Bedside Commode Cane Walker * List name and contact numbers for known caregivers / representatives who currently or will assist patient after discharge: KARINA CABALLERO (DAUGHTER) [phone] * Verbal permission to speak to the caregivers and representatives has been obtained from the patient. N/A * Community resources currently utilized None * Additional services required to return to the preadmission environment? Yes * Can the patient safely return to the preadmission environment? No * Has this patient been hospitalized within the prior 30 days at any hospital? No Coverage Notice Reviewer: [id number] - Eliza Turpin Notice Issued Date-Time: 06/17/2019 9:50 Notice Type: Patient Choice Letter Notice Delivered To: Patient Relationship to Patient: Administrative Services Specialist Name: Delivery Method: HAND - Hand Delivered Nereida Days: Prior Verbal Notification: Recipient Understood Notice: Yes Recipient Signature: Yes Med Rec Note Co-signed by Attending: Coverage Notice Comment: [facility] for [facility] rehab [facility] Patient Name: KIMBERLEE DAVALOS Page [phone] at 1019 All edits/amendments must be made on the electronic document DICTATION DATE: 06/17/19 1018 CLASSIFICATION COUNSELOR: CRYS 06/17/19 1018 RPT#: [id number] DC DATE: STATUS: ADM IN [facility] [address] [place] [address] END OF REPORT
[2019-06-17 13:20] VITALS: BP 186/92
[2019-06-17 14:38] LABS: CKMB 3.2 U/L (0.0-3.6); CREATINE KINASE 107 UL (21-215)
[2019-06-17 14:53] LABS: TROPONIN-I 1.269 ng/mL (0.000-0.060)
--- NOTE | 2019-06-17 15:14 | NUR ---
NUTRITION F/U PT SLEEPING WITH FAMILY AT BEDSIDE. TOLERATING REG MECH SOFT DIET. PT AND DTR REQUESTING THAT DIET BE ADVANCED TO REG. INFORMED BOTH THAT DECISION WOULD HAVE TO BE MADE BY MD AND SPEECH THERAPY. RD FOLLOWING
--- NOTE | 2019-06-17 15:23 | NUR ---
COURTNEY ZULETA NOTFIED ABOUT TROPONIN 1.269. CONSULTED CARDIOLOGY.
[2019-06-17 17:18] VITALS: BP 158/72
--- NOTE | 2019-06-17 18:00 | NUR ---
DR. ANGEL IN TO TALK TO PATIENT AND DAUGHTER. STATED HE WOULD ORDER MRI AND CT. PATIENT IN BED WITH IV INTACT. NORCO 7.5MG GIVEN EARLIER FOR PAIN. FEELING A BETTER AT THIS TIME. CALL LIGHT WITHIN REACH.
[2019-06-17 19:30] VITALS: BP 128/56
--- NOTE | 2019-06-17 19:30 | NUR ---
PT SITTING UP IN BED WITHOUT DISTRESS, ORIENTED TO SELF ONLY. DAUGHTER AT BEDSIDE. IV RIGHT FA SL, FLUSHES EASILY. LEFT ARM IN SLING. BRUISING TO BILAT ARMS. PT BEING TAKEN TO CT AT THIS TIME. WILL CTM
[2019-06-17 20:04] LABS: CKMB 2.3 U/L (0.0-3.6); CREATINE KINASE 64 UL (21-215)
[2019-06-17 20:08] LABS: TROPONIN-I 1.127 ng/mL (0.000-0.060)
--- NOTE | 2019-06-17 21:30 | NUR ---
DAUGHTER STATES PT HAS NOT VOIDED ALL DAY. PT DOES NOT FEEL URGE TO VOID, LOWER ABD ISNOT DISTENDED OR TENDER. PT DOES NOT WANT BLADDER SCAN. PT HAS NOT HAD ANYTHING TO EAT OR DRINK BESIDES A FEW SIPS OF BOOST. DAUGHTER FEELS LIKE PT IS DEHYDRATED. CALLED AND SPOKE WITH ANDRIA MALIK APN, ORDERS TO HOLD LASIX TONIGHT AND BLADDER SCAN PT, IF >300ML PLACE MILLER. EXPLAINED SITUATION TO PT AND DAUGHTER. PT AGREED TO BE BLADDER SCANNED, SHOWED 475ML. PT DID NOT WANT MILLER PLACED, AGREED TO GET UP TO BEDSIDE COMMODE AND ATTEMPT TO VOID. AFTER GETTING PT TO COMMODE, NOTICED HER FEMININE PAD WAS SOAKED WITH URINE, APPROX 100ML. PT THEN VOIDED 350ML. ASSISTED PT BACK TO BED. WILL CTM
--- NOTE | 2019-06-18 01:30 | NUR ---
ASSISTED PT UP TO BEDSIDE COMMODE WITH DAUGHTER AND GAIT BELT. PT VOIDED 250ML. ASSISTED BACK TO BED. WILL CTM
[2019-06-18 02:05] LABS: CKMB 2.1 U/L (0.0-3.6); CREATINE KINASE 87 UL (21-215)
--- NOTE | 2019-06-18 04:15 | NUR ---
RIGHT AC IV INFILTRATED. DC'D WITH CATHETER INTACT. RESITED 22G IV RIGHT HAND X2 ATTEMPTS. TOLERATED WELL. WILL CTM
[2019-06-18 05:30] VITALS: BP 145/61; BP 154/58
[2019-06-18 08:12] LABS: ANION GAP 14.7 mmol/L (8-16); CALCIUM 7.6 mg/dL (8.5-10.1); CARBON DIOXIDE 25.4 mmol/L (21.0-32.0); CREATININE - SERUM 1.2 mg/dL (0.6-1.3)
[2019-06-18 08:13] LABS: POTASSIUM - SERUM 4.1 mmol/L (3.5-5.1)
[2019-06-18 08:25] LABS: BASOPHILS 0.1 % (0-2); EOSINOPHILS 0 % (0-7); HEMATOCRIT 24.6 % (36.0-48.0); HEMOGLOBIN 8.2 g/dL (12-16); IMMATURE GRANULOCYTES 4.9 % (0-5); LYMPHOCYTES 8.3 % (15-50); MCH 28.7 pg (26.0-34.0); MCHC 33.3 g/dL (31.0-37.0); MEAN PLATELET VOLUME 10.2 fL (7.4-10.4); MONOCYTES 5.4 % (2-11); NEUTROPHILS 81.3 % (40-80); PLATELET COUNT 277 10x3/uL (130-400); RBC 2.86 10x6/uL (4.00-5.40); RDW 13.9 % (11.5-14.5); WBC 18.4 10x3/uL (4.8-10.8)
[2019-06-18 09:38] VITALS: BP 100/52
--- NOTE | 2019-06-18 13:16 | NUR ---
0800 RESTING IN BED, NO DISTRESS NOTED, FAMILY IN ROOM, SLING TO LEFT ARM, IV TO R HAND, CONT TO MONITOR BRUISING AND PAIN
--- NOTE | 2019-06-18 14:02 | NUR ---
PT NPO FOR CT OF ABD AND PELVIS, DAUGHTER IN ROOM, PT HAVING PAIN WITH MOVEMENT, REFUSED PO MEDS, IV INFUSING, CONT TO MONITOR AND INFORM DAUGHTER
[2019-06-18 17:42] LABS: RBC 2.41 10x6/uL (4.00-5.40); WBC 25.5 10x3/uL (4.8-10.8)
[2019-06-18 17:43] LABS: HEMATOCRIT 21.3 % (36.0-48.0); HEMOGLOBIN 7.1 g/dL (12-16)
[2019-06-18 17:44] LABS: MCH 29.5 pg (26.0-34.0); MCHC 33.3 g/dL (31.0-37.0); MCV 88.4 fL (80.0-100.0); MEAN PLATELET VOLUME 10.3 fL (7.4-10.4); RDW 14.1 % (11.5-14.5)
[2019-06-18 17:47] LABS: APTT 21.6 SECONDS (22.8-39.4); INR 1.23 (0.85-1.17); PROTIME 15.4 SECONDS (11.6-15.0)
--- NOTE | 2019-06-18 18:55 | NUR ---
TYPE AND SCREEN DONE, DAUGHTER SPOKE WITH DR ANGEL ABOUT PT CARE, WILL SIGN CONSENT FOR BLOOD
--- NOTE | 2019-06-18 20:13 | NUR ---
183 NO URINE OUTPUT TODAY, BLADDER SCAN SHOWS 126CC, PASS IN REPORT
[2019-06-18 23:25] VITALS: BP 104/33
[2019-06-18 23:45] VITALS: BP 115/46
[2019-06-19 02:40] VITALS: BP 127/55
[2019-06-19 02:50] VITALS: BP 127/55
[2019-06-19 03:05] VITALS: BP 123/44
--- NOTE | 2019-06-19 03:59 | NUR ---
PT RESTING IN BED. EYES CLOSED. NO SIGNS OF DISTRESS. BREATHING EVEN AND UNLABORED. IV SITE RT HAND DRESSING CLEAN DRY AND INTACT. NO SIGNS OF INFECTION. BOWEL SOUNDS ACTIVE. LUNG SOUNDS CLEAR. LT AND RT ARMS BRUISING AND SWELLING. SOME LOWER LEG SWELLING PRESENT. WILL CONTINUE PLAN OF CARE. CALL LIGHT IN REACH. BED LOWERED AND LOCKED. FAMILY AT BEDSIDE. BED RAILS UPX3. BED ALARM ON.
--- NOTE | 2019-06-19 04:26 | NUR ---
I have reviewed this patient and I concur with the Shift Assessment completed by the Licensed Practical Nurse today this shift.
[2019-06-19 05:30] VITALS: BP 160/66
--- NOTE | 2019-06-19 08:00 | NUR ---
RESTING QUIETLY IN BED. HAS PERIODS OF EXTREME PAIN. GIVEN 650MG TYLENOL PER RECTUM FOR SAME. WILL MONITOR. DR GUTIÉRREZ AND DR. GAUTHIER HERE. DISCUSSED OPTIONS WITH DAUGHTER KARINA. SHE IS GOING TO BE HOSPICE AT THIS TIME. LUNGS ARE DIMINISHED THROUGHOUT LUNG ESCOTO. NO COUGH NOTED. SKIN IS INTACT WITH LARGE AREAS OF BRUISING NOTED TO ARMS AND BREAST IN PARTICULAT. IV TO RIGHT HAND IS PATENT WITHOUT RENDSS AT INSERTION SITE. NO NEEDS. NOTED. WILL MONITOR.
[2019-06-19 08:09] LABS: HEMATOCRIT 31.6 % (36.0-48.0); HEMOGLOBIN 10.8 g/dL (12-16); MCHC 34.2 g/dL (31.0-37.0); MCV 87.8 fL (80.0-100.0); MEAN PLATELET VOLUME 10.3 fL (7.4-10.4); PLATELET COUNT 184 10x3/uL (130-400); RDW 14.3 % (11.5-14.5); WBC 25.9 10x3/uL (4.8-10.8)
[2019-06-19 08:11] LABS: ANION GAP 14.3 mmol/L (8-16); CALCIUM 7.7 mg/dL (8.5-10.1); CARBON DIOXIDE 25.7 mmol/L (21.0-32.0); CREATININE - SERUM 1.4 mg/dL (0.6-1.3)
[2019-06-19 09:45] LABS: LYMPHOCYTES 10 % (15-50); MONOCYTES 10 % (2-11); NEUTROPHILS 79 % (40-80)
[2019-06-19 09:46] VITALS: BP 140/94
[2019-06-19 09:46] LABS: ANISOCYTOSIS OCC; PLATELET ESTIMATE NORMAL
--- NOTE | 2019-06-19 10:20 | NUR ---
REQUESTED AND GIVEN 0.5 MG DILAUDID SLOW IVP FOR C/O PAIN LEVEL 10. WILL MONITOR. DAUGHTER AT BEDSIDE.
--- NOTE | 2019-06-19 12:10 | NUR ---
REQUESTED AND GIVNE 0.5 MG DILAUDID SLOW IVP FOR C/O RIGHT SHOULDER PAIN LEVEL 8. WILL MONITOR. DAUGHTER REPORTS SHE HAS BEEN MORE ALERT AND AWARE AFTER PAIN MEDS.
--- NOTE | 2019-06-19 13:25 | EC ---
PATIENT:KIMBERLEE DAVALOS DATE OF SERVICE: 06/11/19 SEX: F MEDICAL RECORD: [id number] DATE OF : [birth year] LOCATION:D.[facility] AGE OF PATIENT: 89 ADMISSION DATE: 06/11/19 REFERRING PHYSICIAN: INTERPRETING PHYSICIAN: DALIA COTA MD ECHOCARDIOGRAM REPORT ECHO CHARGES 5 ECHO LIMITED Date: 06/18/19 CLINICAL DIAGNOSIS: CP/ELEVATED TROPONIN ECHOCARDIOGRAPHIC MEASUREMENTS (adult normal given) AC root (d.<3.7cm) 0 cm LV Septum d (<1.2 cm> 0 cm Valve Excursion 0 cm LV Septum (systole) 0 cm Left Atria (s.<4.0cm> 0 cm LVPW d(<1.2cm) 0 cm RV (d.<2.3cm) 0 cm LVPW (sytole) 0 cm LV diastole(<5.6CM) 0 cm MV E-F(>70mm/sec) 0 cm LV systole 0 cm LVOT Diameter 0 cm MV exc.(>10mm) 0 cm Est.ejection fraction (50-75%) 0 % DOPPLER: LVIT 0 cm/sec A 0 cm/sec E 0 cm/sec LA 0 cm/sec RVSP 0 mmHg LVOT 0 cm/sec AOP1/2T 0 m/s Asc. Ao 0 cm/sec RVOT 0 cm/sec RA 0 cm/sec PA 0 cm/sec AV Gradient Peak 0 mmHg AV Mean 0 mmHg AV Area 0 cm MV Gradient Peak 0 mmHg MV Mean 0 mmHg MV Area 0 cm COMMENTS: LIMITED STUDY FOR EF (2-D ONLY) COMPETE ECHO DONE ON 06/12/19 Newsstand Vendor: 1 JASWINDER HURDOE Ball Mill Mixer: 3 Dr. Alberto TAPE# PACS Pericardial Effusion N DATE OF SERVICE: This is a technically limited study includes 2D. Grossly LVH appears present. LV internal dimensions are normal. There is hypokinesis of the anterior apex, lateral apex, and inferior apex. Overall, function reduced 30% to 35%. 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 Left atrium appears normal. Mitral valve appears to have good valve excursion. Right-sided chambers were grossly normal. ECHOCARDIOGRAM REPORT [id number] KIMBERLEE DAVALOS TRANSINT:[id number] Voice Confirmation ID: [id number] DOCUMENT ID: [id number] DALIA COTA MD at 1325 CC: [id number] DICTATION DATE: 06/18/19 1601 MAIL TELLER: 06/18/192007 ADM IN [facility] [address] [id number]
--- NOTE | 2019-06-19 13:30 | NUR ---
HOSPICE WAS HERE TO VISIT. DAUGHTER KARINA ISN'T SURE NOW THAT THEY NEED TO GO TO HOSPICE. WILL MONITOR.
--- NOTE | 2019-06-19 13:30 | MORECARE ---
CASE MANAGEMENT DISCHARGE SUMMARY PATIENT: KIMBERLEE DAVALOS UNIT: [id number] ADM DATE: 06/11/19 AGE: 89 : 32 SEX: F ROOM/BED: D.8393 AUTHOR: ALISHADOC PHYSICIAN: REFERRING PHYSICIAN: DALIA SUH MD DATE OF SERVICE: 06/19/19 Discharge Plan Patient Name: KIMBERLEE DAVALOS Facility: [facility]:[place] : 1930 Planned Disposition: Inpatient Rehab Anticipated Discharge Date: Discharge Date: Expected LOS: Initial Reviewer: [email or web address] Initial Review Date: 06/11/2019 Generated: 06/19/19 2:29 pm DCP- Discharge Planning Updated by [email or web address]: Eliza Turpin on 06/17/19 9:[address] Patient Name: KIMBERLEE DAVALOS Admission Status: ER Accout number: [id number] Admission Date: 06-11-2019 : 1930 Admission Diagnosis: Attending: NATALY Current LOS: 6 Anticipated DC Date: Planned Disposition: Inpatient Rehab Primary Insurance: MEDICARE A & B Discharge Planning Comments: CM met with patient & daughter to complete initial dc planning assessment. CM educated patient on the CM role and verbal consent given by patient to complete assessment. Patient lives at home in [facility], where she is independent with her care. At discharge patient plans to go to inpatient rehab at [facility] feels this is a safe discharge. CM discussed availability of home health, rehab services, and medical equipment. The daughter who lives in [place], stated that she would like to go here to inpatient rehab. HAILEE signed. We also discussed about the levels of care. She has a cane, walker, and BSC at home, but does NOT use any of them. 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 She does have a bathhouse keeper who comes every 3 weeks. HAILEE for Inpatient rehab at [facility] and [facility]. Patient denied known discharge needs at this time. CM will continue to follow and will assist as needed with dc plans/needs. Barge Engineer: Eliza Turpin DCPIA - Discharge Planning Initial Assessment Updated by [id number]: Eliza Turpin on 06/17/19 10:12 am * Is the patient Alert and Oriented? Yes * How many steps to enter\exit or inside your home? * PCP ABDIRIZAK REYES APN * Pharmacy [facility] * Preadmission Environment Home Alone * ADLs Independent * Equipment Bedside Commode Cane Walker * List name and contact numbers for known caregivers / representatives who currently or will assist patient after discharge: KARINA CABALLERO (DAUGHTER) [phone] * Verbal permission to speak to the caregivers and representatives has been obtained from the patient. N/A * Community resources currently utilized None * Additional services required to return to the preadmission environment? Yes * Can the patient safely return to the preadmission environment? No * Has this patient been hospitalized within the prior 30 days at any hospital? No External Providers External Provider: [facility] Next Contact Date: Service Request Date: Service Type: Resolution: Reviewer: Comments: Coverage Notice Reviewer: [id number] - Eliza Turpin Notice Issued Date-Time: 06/17/2019 9:50 Notice Type: Patient Choice Letter Notice Delivered To: Patient Relationship to Patient: Sales And Marketing Vice President Name: Delivery Method: HAND - Hand Delivered Nereida Days: Prior Verbal Notification: Recipient Understood Notice: Yes Recipient Signature: Yes Med Rec Note Co-signed by Attending: Coverage Notice Comment: [facility] for inpatient rehab and [facility] Last DP export: 06/17/19 9:19 a Patient Name: KIMBERLEE DAVALOS Page [phone] at 1330 All edits/amendments must be made on the electronic document DICTATION DATE: 06/19/19 1329 CONTACT CENTER PROFESSIONAL: CRYS 06/19/19 1329 RPT#: [id number] DC DATE: STATUS: ADM IN [facility] [address] [place] [address] END OF REPORT
--- NOTE | 2019-06-19 13:56 | MORECARE ---
CASE MANAGEMENT DISCHARGE SUMMARY PATIENT: KIMBERLEE DAVALOS UNIT: [id number] ADM DATE: 06/11/19 AGE: 89 : 32 SEX: F ROOM/BED: D.7884 AUTHOR: ALISHADOC PHYSICIAN: REFERRING PHYSICIAN: DALIA SUH MD DATE OF SERVICE: 06/19/19 Discharge Plan Patient Name: KIMBERLEE DAVALOS Facility: [facility]:[place] : 1930 Planned Disposition: Inpatient Rehab Anticipated Discharge Date: Discharge Date: Expected LOS: Initial Reviewer: [id number] Initial Review Date: 06/11/2019 Generated: 06/19/19 2:56 pm Comments DCP- Discharge Planning Updated by [email or web address]: Eliza Turpin on 06/19/19 12:[address] [facility] TO DO EVALUATION FOR [facility]IP DCP- Discharge Planning Updated by [email or web address]: Eliza Turpin on 06/17/19 9:[address] Patient Name: KIMBERLEE DAVALOS Admission Status: ER Accout number: [id number] Admission Date: 06-11-2019 : 1930 Admission Diagnosis: Attending: NATALY Current LOS: 6 Anticipated DC Date: Planned Disposition: Inpatient Rehab Primary Insurance: MEDICARE A & B Discharge Planning Comments: CM met with patient & daughter to complete initial dc planning assessment. CM educated patient on the CM role and verbal consent given by patient to complete assessment. Patient lives at home in [facility], where she is independent with her care. At discharge patient plans to go to inpatient rehab at [facility] feels this is a safe discharge. CM discussed availability of home health, rehab services, and medical equipment. The daughter who lives in [place], stated that she would like to go here to inpatient rehab. HAILEE signed. We also discussed about the levels of care. She has a cane, walker, and BSC at home, but does NOT use any of them. 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 HAILEE for Inpatient rehab at [facility] and [facility]. Patient denied known discharge needs at this time. CM will continue to follow and will assist as needed with dc plans/needs. Resist Coater Developer: Eliza Turpin DCPIA - Discharge Planning Initial Assessment Updated by [id number]: Eliza Turpin on 06/17/19 10:12 am * Is the patient Alert and Oriented? Yes * How many steps to enter\exit or inside your home? * PCP ABDIRIZAK REYES APN * Pharmacy [facility] * Preadmission Environment Home Alone * ADLs Independent * Equipment Bedside Commode Cane Walker * List name and contact numbers for known caregivers / representatives who currently or will assist patient after discharge: KARINA CABALLERO (DAUGHTER) [phone] * Verbal permission to speak to the caregivers and representatives has been obtained from the patient. N/A * Community resources currently utilized None * Additional services required to return to the preadmission environment? Yes * Can the patient safely return to the preadmission environment? No * Has this patient been hospitalized within the prior 30 days at any hospital? No Coverage Notice Reviewer: [id number] Moe Turpin Notice Issued Date-Time: 06/17/2019 9:50 Notice Type: Patient Choice Letter Notice Delivered To: Patient Relationship to Patient: Bpm Architect Name: Delivery Method: HAND - Hand Delivered Nereida Days: Prior Verbal Notification: Recipient Understood Notice: Yes Recipient Signature: Yes Med Rec Note Co-signed by Attending: Coverage Notice Comment: [facility] for inpatient rehab [facility] ON 06/19/19 1255 Reviewer: [id number] Moe Turpin Notice Issued Date-Time: 06/19/2019 12:55 Notice Type: IM Discharge Notice Notice Delivered To: Family Member Relationship to Patient: Daughter Bpm Architect Name: KARINA CABALLERO Delivery Method: - Nereida Days: Prior Verbal Notification: Recipient Understood Notice: Yes Recipient Signature: Yes Med Rec Note Co-signed by Attending: Coverage Notice Comment: Last DP export: 06/19/19 12:29 p Patient Name: KIMBERLEE DAVALOS Page [phone] at 1356 All edits/amendments must be made on the electronic document DICTATION DATE: 06/19/19 1356 DIGITAL ASSOCIATE: CRYS 06/19/19 1356 RPT#: [id number] DC DATE: STATUS: [facility] [address] [place] [address] END OF REPORT
--- NOTE | 2019-06-19 15:24 | MORECARE ---
CASE MANAGEMENT DISCHARGE SUMMARY PATIENT: KIMBERLEE DAVALOS UNIT: [id number] ADM DATE: 06/11/19 AGE: 89 : 32 SEX: F ROOM/BED: D.2218 AUTHOR: ALISHADOC PHYSICIAN: REFERRING PHYSICIAN: DALIA SUH MD DATE OF SERVICE: 06/19/19 Discharge Plan Patient Name: KIMBERLEE DAVALOS Facility: [facility]:[place] : 1930 Planned Disposition: Inpatient Rehab Anticipated Discharge Date: Discharge Date: Expected LOS: Initial Reviewer: [email or web address] Initial Review Date: 06/11/2019 Generated: 06/19/19 4:23 pm Comments DCP- Discharge Planning Updated by [email or web address]: Eliza Turpin on 06/19/19 2:[address] HOSPICE CONSULT DONE AND THE FAMILY HAS CHANGED THEIR MIND AND NOW DOES NOT WANT HOSPICE. DCP- Discharge Planning Updated by [email or web address]: Eliza Turpin on 06/19/19 12:[address] [facility] TO DO EVALUATION FOR GIP DCP- Discharge Planning Updated by [id number]: Eliza Turpin on 06/17/19 9:[address] Patient Name: KIMBERLEE DAVALOS Admission Status: ER Accout number: [id number] Admission Date: 06-11-2019 : 1930 Admission Diagnosis: Attending: NATALY Current LOS: 6 Anticipated DC Date: Planned Disposition: Inpatient Rehab Primary Insurance: MEDICARE A & B Discharge Planning Comments: CM met with patient & daughter to complete initial dc planning assessment. CM educated patient on the CM role and verbal consent given by patient to complete assessment. Patient lives at home in [facility], where she is independent with her care. At discharge patient plans to go to inpatient rehab at [facility] feels this is a safe discharge. CM discussed availability of home health, rehab services, and medical equipment. The daughter who lives in [place], stated that she would like to go here to inpatient rehab. HAILEE signed. We also discussed about the levels of care. She has a cane, walker, and BSC at home, but does NOT use any of them. 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 HAILEE for Inpatient rehab at [facility] and [facility]. Patient denied known discharge needs at this time. CM will continue to follow and will assist as needed with dc plans/needs. Panman: Eliza Turpin DCPIA - Discharge Planning Initial Assessment Updated by [email or web address]: Eliza Turpin on 06/17/19 10:12 am * Is the patient Alert and Oriented? Yes * How many steps to enter\exit or inside your home? * PCP ABDIRIZAK REYES APN * Pharmacy [facility] * Preadmission Environment Home Alone * ADLs Independent * Equipment Bedside Commode Cane Walker * List name and contact numbers for known caregivers / representatives who currently or will assist patient after discharge: KARINA CABALLERO (DAUGHTER) [phone] * Verbal permission to speak to the caregivers and representatives has been obtained from the patient. N/A * Community resources currently utilized None * Additional services required to return to the preadmission environment? Yes * Can the patient safely return to the preadmission environment? No * Has this patient been hospitalized within the prior 30 days at any hospital? No Coverage Notice Reviewer: [id number] Moe Turpin Notice Issued Date-Time: 06/17/2019 9:50 Notice Type: Patient Choice Letter Notice Delivered To: Patient Relationship to Patient: Office Rn Name: Delivery Method: HAND - Hand Delivered Nereida Days: Prior Verbal Notification: Recipient Understood Notice: Yes Recipient Signature: Yes Med Rec Note Co-signed by Attending: Coverage Notice Comment: [facility] for inpatient rehab [facility] ON 06/19/19 1255 Reviewer: [email or web address] Moe Turpin Notice Issued Date-Time: 06/19/2019 12:55 Notice Type: IM Discharge Notice Notice Delivered To: Family Member Relationship to Patient: Daughter Office Rn Name: KARINA CABALLERO Delivery Method: - Nereida Days: Prior Verbal Notification: Recipient Understood Notice: Yes Recipient Signature: Yes Med Rec Note Co-signed by Attending: Coverage Notice Comment: Last DP export: 06/19/19 12:56 p Patient Name: KIMBERLEE DAVALOS Page 15088 at 1524 All edits/amendments must be made on the electronic document DICTATION DATE: 06/19/191522 SEWER: CRYS 06/19/19 152 RPT#: [id number] DC DATE: STATUS: ADM IN [facility] [address] [place] [address] END OF REPORT
--- NOTE | 2019-06-19 15:34 | MORECARE ---
CASE MANAGEMENT DISCHARGE SUMMARY PATIENT: KIMBERLEE DAVALOS UNIT: [id number] ADM DATE: 06/11/19 AGE: 89 : 32 SEX: F ROOM/BED: D.2218 AUTHOR: ALISHADOC PHYSICIAN: REFERRING PHYSICIAN: DALIA SUH MD DATE OF SERVICE: 06/19/19 Discharge Plan Patient Name: KIMBERLEE DAVALOS Facility: [facility]:[place] : 1930 Planned Disposition: Inpatient Rehab Anticipated Discharge Date: Discharge Date: Expected LOS: Initial Reviewer: [id number] Initial Review Date: 06/11/2019 Generated: 06/19/19 4:33 pm Comments DCP- Discharge Planning Updated by [email or web address]: Eliza Turpin on 06/19/19 2:[address] HOSPICE CONSULT DONE AND THE FAMILY HAS CHANGED THEIR MIND AND NOW DOES NOT WANT HOSPICE. DCP- Discharge Planning Updated by [email or web address]: Eliza Turpin on 06/19/19 12:[address] [place] [facility] HERE TO DO EVALUATION FOR GIP DCP- Discharge Planning Updated by [email or web address]: Eliza Turpin on 06/17/19 9:[address] Patient Name: KIMBERLEE DAVALOS Admission Status: ER Accout number: [id number] Admission Date: 06-11-2019 : 1930 Admission Diagnosis: Attending: NATALY Current LOS: 6 Anticipated DC Date: Planned Disposition: Inpatient Rehab Primary Insurance: MEDICARE A & B Discharge Planning Comments: CM met with patient & daughter to complete initial dc planning assessment. CM educated patient on the CM role and verbal consent given by patient to complete assessment. Patient lives at home in [facility], where she is independent with her care. At discharge patient plans to go to inpatient rehab at [facility] feels this is a safe discharge. CM discussed availability of home health, rehab services, and medical equipment. The daughter who lives in [place], stated that she would like to go here to inpatient rehab. HAILEE signed. We also discussed about the levels of care. She has a cane, walker, and BSC at home, but does NOT use any of them. 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 She does have a powerhouse oiler who comes every 3 weeks. HAILEE for Inpatient rehab at [facility] and [facility]. Patient denied known discharge needs at this time. CM will continue to follow and will assist as needed with dc plans/needs. Negative Spotter: Eliza Turpin DCPIA - Discharge Planning Initial Assessment Updated by [email or web address]: Eliza Turpin on 06/17/19 10:12 am * Is the patient Alert and Oriented? Yes * How many steps to enter\exit or inside your home? * PCP ABDIRIZAK REYES APN * Pharmacy [facility] * Preadmission Environment Home Alone * ADLs Independent * Equipment Bedside Commode Cane Walker * List name and contact numbers for known caregivers / representatives who currently or will assist patient after discharge: KARINA CABALLERO (DAUGHTER) [phone] * Verbal permission to speak to the caregivers and representatives has been obtained from the patient. N/A * Community resources currently utilized None * Additional services required to return to the preadmission environment? Yes * Can the patient safely return to the preadmission environment? No * Has this patient been hospitalized within the prior 30 days at any hospital? No Coverage Notice Reviewer: [id number] Moe Turpin Notice Issued Date-Time: 06/17/2019 9:50 Notice Type: Patient Choice Letter Notice Delivered To: Patient Relationship to Patient: Optical Coating Technician Name: Delivery Method: HAND - Hand Delivered Nereida Days: Prior Verbal Notification: Recipient Understood Notice: Yes Recipient Signature: Yes Med Rec Note Co-signed by Attending: Coverage Notice Comment: [facility] for inpatient rehab and [facility] [place] [facility] ON 06/19/19 1255 Reviewer: [id number] Moe Turpin Notice Issued Date-Time: 06/19/2019 12:55 Notice Type: IM Discharge Notice Notice Delivered To: Family Member Relationship to Patient: Daughter Optical Coating Technician Name: KARINA CABALLERO Delivery Method: - Nereida Days: Prior Verbal Notification: Recipient Understood Notice: Yes Recipient Signature: Yes Med Rec Note Co-signed by Attending: Coverage Notice Comment: Last DP export: 06/19/19 2:24 p Patient Name: KIMBERLEE DAVALOS Page [id number] at 1534 All edits/amendments must be made on the electronic document DICTATION DATE: 06/19/191532 FORGING MACHINE OPERATOR: CRYS 06/19/19 153 RPT#: [id number] DC DATE: STATUS: ADM IN [facility] [address] [place] [address] END OF REPORT
--- NOTE | 2019-06-19 19:50 | NUR ---
RESTING QUIETLY IN BED. DENIES NEEDS. NO CHANGES NOTED. FAMILY AT BEDSIDE.
[2019-06-19 20:00] VITALS: BP 132/62
--- NOTE | 2019-06-20 00:15 | NUR ---
PT RESTING IN BED. EYES CLOSED. NO SIGNS OF DISTRESS. BREATHING EVEN AND UNLABORED. IV SITE RT HAND DRESSING CLEAN DRY AND INTACT. NO SIGNS OF INFECTION OR INFULTRATION. LT AND RT ARM BRUISING. BOWEL SOUNDS ACTIVE. LUNG SOUNDS CLEAR. SOME LOWER LEG SWELLING PRESENT. WILL CONTINUE PLAN OF CARE. CALL LIGHT IN REACH. BED LOWERED AND LOCKED. DAUGHTER AT BEDSIDE. BED RAILS UPX3.
[2019-06-20 04:00] VITALS: BP 156/47; BP 156/94
--- NOTE | 2019-06-20 05:02 | NUR ---
I have reviewed this patient and I concur with the Shift Assessment completed by the Licensed Practical Nurse today this shift.
--- NOTE | 2019-06-20 10:37 | NUR ---
FAMILY IN ROOM. DECIDED ON PUREWICK SINCE THE MILLER COULD CAUSE PAIN. I EXPLAINED THAT THE PUREWICK COULD LEAK WELL. DOES NOT WANT TO ROLL OR MOVE PATIENT DUE TO CAUSING PAIN. CL IN REACH. WCTM
--- NOTE | 2019-06-20 16:03 | MORECARE ---
CASE MANAGEMENT DISCHARGE SUMMARY PATIENT: KIMBERLEE DAVALOS UNIT: [id number] ADM DATE: 06/11/19 AGE: 89 : 32 SEX: F ROOM/BED: D.2218 AUTHOR: ALISHADOC PHYSICIAN: REFERRING PHYSICIAN: DALIA SUH MD DATE OF SERVICE: 06/20/19 Discharge Plan Patient Name: KIMBERLEE DAVALOS Facility: [facility]:[place] : 1930 Planned Disposition: Inpatient Rehab Anticipated Discharge Date: Discharge Date: Expected LOS: Initial Reviewer: [id number] Initial Review Date: 06/11/2019 Generated: 06/20/19 5:02 pm Comments DCP- Discharge Planning Updated by [email or web address]: Eliza Turpin on 06/20/19 3:[address] HOSPICE CONSULT WAS ORDERED AGAIN PER PATIENT'S DAUGHTER DCP- Discharge Planning Updated by [id number]: Eliza Turpin on 06/19/19 2:[address] HOSPICE CONSULT DONE AND THE FAMILY HAS CHANGED THEIR MIND AND NOW DOES NOT WANT HOSPICE. DCP- Discharge Planning Updated by [id number]: Eliza Turpin on 06/19/19 12:[address] [facility] TO DO EVALUATION FOR GIP DCP- Discharge Planning Updated by [id number]: Eliza Turpin on 06/17/19 9:[address] Patient Name: KIMBERLEE DAVALOS Admission Status: ER Accout number: [id number] Admission Date: 06-11-2019 : 1930 Admission Diagnosis: Attending: NATALY Current LOS: 6 Anticipated DC Date: Planned Disposition: Inpatient Rehab Primary Insurance: MEDICARE A & B Discharge Planning Comments: CM met with patient & daughter to complete initial dc planning assessment. CM educated patient on the CM role and verbal consent given by patient to complete assessment. Patient lives at home in [facility], where she is independent with her care. At discharge patient plans to go to inpatient rehab at [facility] feels this is a safe discharge. CM discussed availability of home health, rehab services, and medical equipment. The daughter who lives in [place], stated that she would like to go here to inpatient rehab. HAILEE signed. We also discussed about the levels of care. She has a cane, walker, and BSC at home, but does NOT use any of them. 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 She does have a household worker who comes every 3 weeks. HAILEE for Inpatient rehab at [facility] and [facility]. Patient denied known discharge needs at this time. CM will continue to follow and will assist as needed with dc plans/needs. Aeronautics Commission Director: Eliza Turpin DCPIA - Discharge Planning Initial Assessment Updated by [id number]: Eliza Turpin on 06/17/19 10:12 am * Is the patient Alert and Oriented? Yes * How many steps to enter\exit or inside your home? * PCP ABDIRIZAK REYES APN * Pharmacy [facility] * Preadmission Environment Home Alone * ADLs Independent * Equipment Bedside Commode Cane Walker * List name and contact numbers for known caregivers / representatives who currently or will assist patient after discharge: KARINA CABALLERO (DAUGHTER) [phone] * Verbal permission to speak to the caregivers and representatives has been obtained from the patient. N/A * Community resources currently utilized None * Additional services required to return to the preadmission environment? Yes * Can the patient safely return to the preadmission environment? No * Has this patient been hospitalized within the prior 30 days at any hospital? No Coverage Notice Reviewer: [id number] Moe Turpin Notice Issued Date-Time: 06/17/2019 9:50 Notice Type: Patient Choice Letter Notice Delivered To: Patient Relationship to Patient: Press Hand Name: Delivery Method: HAND - Hand Delivered Nereida Days: Prior Verbal Notification: Recipient Understood Notice: Yes Recipient Signature: Yes Med Rec Note Co-signed by Attending: Coverage Notice Comment: [facility] for inpatient rehab and [facility] [place] [facility] ON 06/19/19 9575 Reviewer: [id number] Moe Turpin Notice Issued Date-Time: 06/19/2019 12:55 Notice Type: IM Discharge Notice Notice Delivered To: Family Member Relationship to Patient: Daughter Press Hand Name: KARINA CABALLERO Delivery Method: - Nereida Days: Prior Verbal Notification: Recipient Understood Notice: Yes Recipient Signature: Yes Med Rec Note Co-signed by Attending: Coverage Notice Comment: Last DP export: 06/19/19 2:34 p Patient Name: ANOOP KIMBERLEE Page [phone] at 1603 All edits/amendments must be made on the electronic document DICTATION DATE: 06/20/191601 HOME CARE ASSISTANT: CRYS 06/20/191601 RPT#: [id number] DC DATE: STATUS: ADM IN [facility] [address] [place] [address] END OF REPORT
--- NOTE | 2019-06-20 21:46 | NUR ---
PT DISCHARGED TO IN HOSPITAL HOSPICE.
--- NOTE | 2019-06-21 18:24 | MORECARE ---
CASE MANAGEMENT DISCHARGE SUMMARY PATIENT: KIMBERLEE DAVALOS UNIT: [id number] ADM DATE: 06/11/19 AGE: 89 : 32 SEX: F ROOM/BED: D.2218 AUTHOR: ALISHA,DOC PHYSICIAN: REFERRING PHYSICIAN: DALIA SUH MD DATE OF SERVICE: 06/21/19 Discharge Plan Patient Name: KIMBERLEE DAVALOS Facility: [facility]:[place] : 1930 Planned Disposition: Inpatient Rehab Anticipated Discharge Date: Discharge Date: 06/20/2019 Expected LOS: Initial Reviewer: [email or web address] Initial Review Date: 06/11/2019 Generated: 06/21/19 7:24 pm Comments DCP- Discharge Planning Updated by [email or web address]: Eliza Turpin on 06/20/19 3:[address] HOSPICE CONSULT WAS ORDERED AGAIN PER PATIENT'S DAUGHTER DCP- Discharge Planning Updated by [email or web address]: Eliza Turpin on 06/19/19 2:[address] HOSPICE CONSULT DONE AND THE FAMILY HAS CHANGED THEIR MIND AND NOW DOES NOT WANT HOSPICE. DCP- Discharge Planning Updated by [id number]: Eliza Turpin on 06/19/19 12:[address] [place] [facility] TO DO EVALUATION FOR GIP DCP- Discharge Planning Updated by [email or web address]: Eliza Turpin on 06/17/19 9:[address] Patient Name: KIMBERLEE DAVALOS Admission Status: ER Accout number: [id number] Admission Date: 06-11-2019 : 1930 Admission Diagnosis: Attending: NATALY Current LOS: 6 Anticipated DC Date: Planned Disposition: Inpatient Rehab Primary Insurance: MEDICARE A & B Discharge Planning Comments: CM met with patient & daughter to complete initial dc planning assessment. CM educated patient on the CM role and verbal consent given by patient to complete assessment. Patient lives at home in [facility], where she is independent with her care. At discharge patient plans to go to inpatient rehab at [facility] feels this is a safe discharge. CM discussed availability of home health, rehab services, and medical equipment. The daughter who lives in [place], stated that she would like to go here to inpatient rehab. HAILEE signed. We also discussed about the levels of care. She has a cane, walker, and BSC at home, but does NOT use any of them. 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 She does have a powerhouse mechanic supervisor who comes every 3 weeks. HAILEE for Inpatient rehab at [facility] and [facility]. Patient denied known discharge needs at this time. CM will continue to follow and will assist as needed with dc plans/needs. National Park Ranger: Eliza Turpin DCPIA - Discharge Planning Initial Assessment Updated by [email or web address]: Eliza Turpin on 06/17/19 10:12 am * Is the patient Alert and Oriented? Yes * How many steps to enter\exit or inside your home? * PCP ABDIRIZAK REYES APN * Pharmacy [facility] * Preadmission Environment Home Alone * ADLs Independent * Equipment Bedside Commode Cane Walker * List name and contact numbers for known caregivers / representatives who currently or will assist patient after discharge: KARINA CABALLERO (DAUGHTER) [phone] * Verbal permission to speak to the caregivers and representatives has been obtained from the patient. N/A * Community resources currently utilized None * Additional services required to return to the preadmission environment? Yes * Can the patient safely return to the preadmission environment? No * Has this patient been hospitalized within the prior 30 days at any hospital? No Coverage Notice Reviewer: [email or web address] Moe Turpin Notice Issued Date-Time: 06/17/2019 9:50 Notice Type: Patient Choice Letter Notice Delivered To: Patient Relationship to Patient: Leather Finisher Name: Delivery Method: HAND - Hand Delivered Nereida Days: Prior Verbal Notification: Recipient Understood Notice: Yes Recipient Signature: Yes Med Rec Note Co-signed by Attending: Coverage Notice Comment: [facility] for inpatient rehab and [facility] [place] [facility] ON 06/19/19 1255 Reviewer: [id number] Moe Turpin Notice Issued Date-Time: 06/19/2019 12:55 Notice Type: IM Discharge Notice Notice Delivered To: Family Member Relationship to Patient: Daughter Leather Finisher Name: KARINA CABALLERO Delivery Method: - Nereida Days: Prior Verbal Notification: Recipient Understood Notice: Yes Recipient Signature: Yes Med Rec Note Co-signed by Attending: Coverage Notice Comment: Last DP export: 06/20/19 3:03 p Patient Name: KIMBERLEE DAVALOS Page [id number] at 1824 All edits/amendments must be made on the electronic document DICTATION DATE: 06/21/191823 SALES SUPPORT REPRESENTATIVE: CRYS 06/21/191823 RPT#: [id number] DC DATE:06/20/19 STATUS: DIS IN [facility] [address] [place] [address] END OF REPORT
== END 2019-06-20 21:48 | disposition hospice, inpatient (51) | DRG 54 ==
LOC: D.ER 11:40 → D.CVICU 14:57 → OBSVTIME 16:15 → D.MS 16:17 → D.CVICU 16:17 → D.MS 06-16 09:03
PROVIDERS: Family Medicine; Internal Medicine Nephrology; ADMIT Family Medicine; ATTEND Family Medicine
PROC: 5A1935Z Respiratory Ventilation, Less than 24 Consecutive Hours (ICD-10-PCS; principal; 2019-06-11)
PROC: 0BH17EZ Insertion of Endotracheal Airway into Trachea, Via Natural or Artificial Opening (ICD-10-PCS; 2019-06-11)
DX: D49.6 Neoplasm of unspecified behavior of brain (principal); G93.6 Cerebral edema; R40.2124 Coma scale, eyes open, to pain, 24 hours or more after hospital admission; E43 Unspecified severe protein-calorie malnutrition; S42.92XA Fracture of left shoulder girdle, part unspecified, initial encounter for closed fracture; N39.0 Urinary tract infection, site not specified; N17.9 Acute kidney failure, unspecified; G93.40 Encephalopathy, unspecified; D62 Acute posthemorrhagic anemia; Z66 Do not resuscitate; R56.9 Unspecified convulsions; Z79.01 Long term (current) use of anticoagulants; Z95.2 Presence of prosthetic heart valve; I10 Essential (primary) hypertension; M19.90 Unspecified osteoarthritis, unspecified site; E87.6 Hypokalemia; X58.XXXA Exposure to other specified factors, initial encounter; S42.131A Displaced fracture of coracoid process, right shoulder, initial encounter for closed fracture; S20.211A Contusion of right front wall of thorax, initial encounter; S30.1XXA Contusion of abdominal wall, initial encounter; I25.10 Atherosclerotic heart disease of native coronary artery without angina pectoris; R40.2354 Coma scale, best motor response, localizes pain, 24 hours or more after hospital admission; R40.2244 Coma scale, best verbal response, confused conversation, 24 hours or more after hospital admission; B96.20 Unspecified Escherichia coli [E. coli] as the cause of diseases classified elsewhere; Z68.25 Body mass index [BMI] 25.0-25.9, adult

== ENCOUNTER 2019-06-20 20:30 | Inpatient (IN) | payer OTHER ==
[~2019-06-20] VITALS: Ht 162.6 cm; Wt 70.9 kg
[~2019-06-20 20:30] MED LIST: COUMADIN2 MG PO; HYDROCHLOROTHIA25 MG PO; NORMODYNE / TR200 MG PO; OMEPRAZOLE20 M1 PO
--- NOTE | 2019-06-21 04:09 | NUR ---
I have reviewed this patient and I concur with the Shift Assessment completed by the Licensed Practical Nurse today this shift.
[2019-06-21 05:00] VITALS: BMI 26.8
[2019-06-21 10:30] VITALS: Ht 162.6 cm; Wt 70.9 kg
[2019-06-22] MEDS ORDERED: MORPHINE S10 MG/5 ML PO (12:21)
[2019-06-22] MEDS ORDERED: LORAZEPAM1 MG/0.5 M SL (12:22)
[2019-06-22] MEDS ORDERED: ATROPINE SULFA3.5 GM EACH EYE (12:24)
--- NOTE | 2019-06-22 17:30 | NUR ---
PATIENT DAUGHTER RECIEVED DC INSTRUCTIONS. VERBALIZED UNDERSTANDING. NO QUESTIONS AT THIS TIME. IV REMOVED WITH CATH TIP INTACT. NO QUESTIONS AT THIS TIME. CALL LIGHT WITHIN REACH. PATIENT RECIEVED PAIN AND ANXIETY MED.
--- NOTE | 2019-06-22 18:45 | NUR ---
EMT HERE TO GET PATIENT. ASSISTED MOVING PATIENT TO STRETCHER. DAUGHTER HAS PATIENT PERSONAL BELONGINGS. PATIENT ESCORTED OUT BUILDING VIA STRETCHER BY EMT TO AMBULANCE.
== END 2019-06-22 18:55 | disposition home health service (06) | DRG 951 ==
LOC: D.MS 20:30
PROVIDERS: ADMIT Legal Medicine; ATTEND Legal Medicine
DX: Z51.5 Encounter for palliative care (principal)